=== PATIENT | male | born 2000 | race Caucasian/White ===

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

== ENCOUNTER 2025-03-27 15:06 | Outpatient (CLI) | payer BC | END 2025-03-27 15:07 | disposition home or self-care (01) | LOC: BICULT 15:06 | PROVIDERS: ATTEND Family Medicine | DX: N28.1 Cyst of kidney, acquired (principal) | CPT/HCPCS: 76770 ==

== ENCOUNTER 2025-04-23 08:06 | Outpatient (CLI) | payer BC | END 2025-04-23 08:07 | disposition home or self-care (01) | LOC: MRI 08:06 → SCSMRI 08:07 | PROVIDERS: ATTEND Urology | DX: N28.1 Cyst of kidney, acquired (principal) | CPT/HCPCS: 70250; 74183 ==